=== PATIENT | male | born 1960 | race Caucasian/White ===

== ENCOUNTER → 2018-07-05 | Outpatient (CLI) | payer OTHER ==
--- NOTE | 2018-07-05 11:48 | EKG ---
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
== END ==
LOC: M.CRD 08:44
DX: R01.1 Cardiac murmur, unspecified (principal)

== ENCOUNTER → 2019-04-08 | Outpatient (CLI) | payer OTHER | LOC: M.MRI 07:17 | DX: M47.26 Other spondylosis with radiculopathy, lumbar region (principal); M51.16 Intervertebral disc disorders with radiculopathy, lumbar region; M41.86 Other forms of scoliosis, lumbar region; M12.88 Other specific arthropathies, not elsewhere classified, other specified site; M48.061 Spinal stenosis, lumbar region without neurogenic claudication; M51.27 Other intervertebral disc displacement, lumbosacral region ==